=== PATIENT | female | born 1990 | race African-American/Black ===

== ENCOUNTER 2025-01-08 21:16 | Emergency (ER) | payer BC ==
[~2025-01-08] VITALS: Ht 170.2 cm; Wt 87.8 kg
[2025-01-08 22:42] LABS: BASO # 0.0 10^3/uL (0.0-0.2); BASO % 0.2 % (0.0-1.0); EOS # 0.1 10^3/uL (0.0-0.5); EOS % 1.5 % (0.0-3.0); LYMPH # 0.6 10^3/uL (1.5-5.0); LYMPH % 8.3 % (24.0-44.0); MONO # 0.3 10^3/uL (0.0-0.8); MONO % 3.9 % (2.0-8.0); NEUTROPHILS # 5.7 10^3/uL (1.5-8.5); NEUTROPHILS % 85.9 % (36.0-66.0); PLATELET COUNT, AUTOMATED 201 10^3/uL (150-450)
[2025-01-08 23:06] LABS: ALT/SGPT 123.0 U/L (7.0-40); AST/SGOT 219.0 U/L (<34)
[2025-01-08] MEDS ORDERED: ISOVUE-370 76% 100 ML VIAL As Ordered ONE (23:10)
[2025-01-08] MEDS: cefTRIAXone SOD 1 GM in DEXTROSE 5% (D5W) ADV/MINI-BAG 50 ML IV ONE (23:10)
[2025-01-09] MEDS: AZITHROMYCIN INJ 500 MG, VIAL MATE ADAPTER 1 EACH in NS 250 ML IV ONE (00:19)
[2025-01-09] MEDS ORDERED: AZIT500T5 PO (00:37)
[2025-01-09] MEDS ORDERED: ONDA-282 PO (00:37)
[2025-01-09] MEDS ORDERED: CEFP200T PO (00:37)
[2025-01-09] MEDS: ONDANSETRON 4MG 2ML VIAL IV ONE (00:53)
[2025-01-09 01:47] VITALS: BP 130/79; TEMP 96.9; O2SAT 99
== END 2025-01-09 01:59 | disposition home or self-care (01) ==
LOC: M ED 21:16
DX: A09 Infectious gastroenteritis and colitis, unspecified (principal); Z88.5 Allergy status to narcotic agent; Z79.899 Other long term (current) drug therapy
CPT/HCPCS: 74177; 80047; 80076; 83605; 83690; 85025; 87040; 93041; 96365; 96366; 96367; 96375; 99284; J0456; J0696; J2405; Q9967